=== PATIENT | female | born 1990 | race Caucasian/White ===

== ENCOUNTER 2016-07-04 06:31 | Day surgery (SDC) | payer BC ==
[2016-06-29 12:43] VITALS: BMI 25.2
[~2016-07-04 06:31] MED LIST: DEXAMETHASONE SOD PHOSPHATE 10 MG/ML 1 ML VIAL IV ONE; DEXAMETHASONE SOD PHOSPHATE 4 MG/ML 1 ML VIAL IV ONE; FAMOTIDINE 20 MG/2 ML VIAL IV ONE; MIDAZOLAM 2 MG/2 ML VIAL IV PRN; ONDANSETRON 4 MG/2 ML VIAL IVP ONE; Pre Op ABX Message 1 EACH MISC MISCELLANE ONE
[2016-07-04] MEDS ORDERED: LIDOCAINE 1% 20 ML VIAL (10MG/ML) FOR IV START INTRADERMA ONE (07:02)
[2016-07-04] MEDS: LACTATED RINGERS 1,000 ML IV SCH ×2 (07:02→09:05)
[2016-07-04] MEDS ORDERED: ONDANSETRON 4 MG/2 ML VIAL ONE (07:26)
[2016-07-04] MEDS ORDERED: SUCCINYLCHOLINE CHLORIDE 100 MG/5 ML SYR IV ONE (07:26)
[2016-07-04] MEDS ORDERED: HYDROmorphone (PF) 1 MG/ML ONE (07:26)
[2016-07-04] MEDS ORDERED: DEXAMETHASONE SOD PHOS (MDV) 100 MG/10 ML VIAL ONE (07:26)
[2016-07-04] MEDS ORDERED: LIDOCAINE 1% INJ 10MG/ML (20 ML MDV) ONE (07:26)
[2016-07-04] MEDS ORDERED: fentaNYL (PF) 50 MCG/ML 2 ML AMP ONE (07:26)
[2016-07-04] MEDS ORDERED: PROPOFOL 10 MG/ML 20 ML VIAL IV ONE (07:26)
--- NOTE | 2016-07-04 08:03 | P.OP ---
Date of Procedure: 07/04/16 Preoperative Diagnosis: Chronic cryptic tonsillitis Postoperative Diagnosis: Same Procedure(s) Performed: Tonsillectomy Anesthesia: JUAN ANTONIO Surgeon: Mauricio Pratt Estimated Blood Loss (ml): 5 Pathology: other (Bilateral tonsils) Condition: stable Disposition: PACU Indications for Procedure: Is a 25-year-old white female whose had difficulties with chronic cryptic tonsillitis with debris gathering in the tonsils recurrently Operative Findings: Tonsils +3 bilaterally are cryptic with sulfur granules in the crypts Description of Procedure: The patient was brought in the operative suite and placed in supine position. The patient underwent induction of general anesthesia with oral endotracheal intubation without difficulty. The patient was prepped and draped in usual aseptic fashion. The McIvor mouth gag was placed. The soft palate was palpated and no submucous cleft was noted. Nasopharynx was examined with mirror exam and no significant adenoid tissue was noted and therefore this was left intact. The left tonsil was grasped with a curved Allis clamp and dissected from tonsillar fossa in a superior to inferior direction using both blunt and electrocautery dissection until the tonsil was removed. Once the tonsil was removed hemostasis was gained with suction cautery. Once hemostasis was obtained attention was turned to the right where the right tonsil was removed exactly as the left had been. Hemostasis was gained with suction cautery. Once hemostasis was obtained and remained good in left tonsillar fossa the patient was suctioned in oral gastric fashion the McIvor mouth gag was removed and the patient was allowed to emerge from general anesthesia having tolerated procedure well and was extubated in the operating suite and transferred to postop recovery area in satisfactory condition.
[2016-07-04 08:27] VITALS: TEMP 97.6
[2016-07-04] MEDS: HYDROmorphone 1 MG/ML 1 ML SYRINGE IVP PRN ×2 (08:32→08:39)
[2016-07-04 08:48] VITALS: RESP 16
[2016-07-04] MEDS ORDERED: HYDROcodone/APAP 7.5-325MG 1 EACH TAB PO ONE (09:48)
[2016-07-04 09:59] VITALS: BP 110/72; PULSE 71
== END 2016-07-04 10:35 | disposition home or self-care (01) ==
LOC: OR 06:31
PROVIDERS: ATTEND Otolaryngology
DX: J35.01 Chronic tonsillitis (principal); Z87.891 Personal history of nicotine dependence
CPT/HCPCS: 42826; 81025; 88304; J2250; J1100 ×2; J2405; J2001; J3010; J1170; J0330; J2704

== ENCOUNTER 2017-10-30 05:50 | Inpatient (IN) | payer BC ==
[2017-10-30 06:06] VITALS: BMI 33.5
[2017-10-30] MEDS ORDERED: METHYLERGONOVINE 0.2 MG/ML 1 ML AMP IM PRN (06:22)
[2017-10-30] MEDS ORDERED: OXYTOCIN 10 UNIT/ML 1 ML VIAL IM PRN (06:22)
[2017-10-30] MEDS ORDERED: TERBUTALINE 1 MG/ML VIAL SQ PRN (06:22)
[2017-10-30] MEDS ORDERED: LIDOCAINE 1% (PF) 10 MG/ML (30 ML SDV) SQ PRN (06:22)
[2017-10-30] MEDS ORDERED: CARBOPROST TROMETHAMINE 250 MCG/ML 1 ML AMP IM PRN (06:22)
[2017-10-30] MEDS ORDERED: OXYTOCIN 20 UNITS/1000 ML NS 1,000 ML IV SCH ×2 (06:30→20:30)
[2017-10-30] MEDS: LACTATED RINGERS 1,000 ML IV SCH ×2 (06:31→11:35)
[2017-10-30 06:35] LABS: Basophils % (A) 0 %; Eosinophils # (A) 0.2 k/uL (0-0.7); Eosinophils % (A) 2 %; HCT 31.6 % (34.0-46.0); HGB 10.6 gm/dL (11.4-16.0); Lymphocytes # (A) 2.2 k/uL (1.0-4.8); Lymphocytes % (A) 20 %; MCH 28.3 pg (25.0-35.0); MCHC 33.5 g/dL (31.0-37.0); MCV 84.5 fL (80.0-100.0); Mean Platelet Volume 7.3; Monocytes # (A) 0.6 k/uL (0-1.0); Monocytes % (A) 6 %; Neutrophils # (A) 7.5 k/uL (1.3-7.7); Neutrophils % (A) 70 %; Platelet Count 272 k/uL (150-450); RBC 3.74 m/uL (3.80-5.40); RDW 14.2 % (11.5-15.5); WBC 10.7 k/uL (3.8-10.6)
[2017-10-30 07:38] LABS: ALT 28 U/L (9-52); AST 22 U/L (14-36); Blood Urea Nitrogen 10 mg/dL (7-17); LDH 578 U/L (313-618); Uric Acid 4.9 mg/dL (3.7-7.4)
[2017-10-30] MEDS ORDERED: BUPIVACAINE (PF) 0.25% 30 ML VIAL ONE (11:16)
[2017-10-30] MEDS ORDERED: SODIUM CHLORIDE 0.9% 100 ML BAG ONE (11:16)
[2017-10-30] MEDS ORDERED: fentaNYL (PF) 50 MCG/ML 5 ML AMP ONE (11:16)
[2017-10-30] MEDS ORDERED: ROPIVACAINE 100 MG, fentaNYL (PF) 200 MCG in SODIUM CHLORIDE 0.9% 76 ML EPIDURAL ONE (11:43)
--- NOTE | 2017-10-30 17:01 | P.HPOB ---
History of Present Illness H&P Date: 10/30/17 Chief Complaint: IUP @ 39 2/7 weeks, gestational HTN This is a very pleasant 27-year-old 1 para 0 at 39-2/7 weeks EDC 2017, based on LMP and c/w 20 weeks US, that presented to labor and delivery for elective induction of labor secondary to gestational hypertension. Blood pressure the office yesterday was noted to be 140/90 with negative proteinuria. On initial examination here this morning she did range 140-160 over low 100s. She denies any signs or symptoms of PIH including but not limited to blurry vision, abdominal pain, or changes in her vision. She does note an occasional contraction denies loss of fluid or vaginal bleeding. She notes good movement On bloodwork should a blood type of A-, rubella immune, RPR nonreactive , hepatitis B surface antigen negative, HIV negative she did pass her Glucola, 128. GBS was negative in addition on 10/09/2017. Review of Systems Constitutional: Denies chills, Denies fatigue, Denies fever Ears, nose, mouth and throat: Denies headache Cardiovascular: Reports edema Respiratory: Denies cough, Denies dyspnea Gastrointestinal: Denies constipation, Denies diarrhea Genitourinary: Reports Past Medical History Additional Past Medical History / Comment(s): hx. of kidney stones, IBS, seasonal allergies History of Any Multi-Drug Resistant Organisms: None Reported Additional Past Surgical History / Comment(s): cystoscopy w/stent Past Anesthesia/Blood Transfusion Reactions: Previous Problems w/ Anesthesia Additional Past Anesthesia/Blood Transfusion Reaction / Comment(s): states after d/c from her cysto. she went to a restaurant-had some fruit, developed lip swelling, was seen in an EC but didn't know if was related to anesthesia or her issue she has w/raw fruit Past Psychological History: No Psychological Hx Reported Smoking Status: Never smoker Past Alcohol Use History: None Reported Past Drug Use History: None Reported - Past Family History Mother Family Medical History: No Reported History Medications and Allergies Home Medications Medication Instructions Recorded Confirmed Type No Known Home Medications [No 06/29/16 10/30/17 History Known Home Medications] Allergies Allergy/AdvReac Type Severity Reaction Status Date / Time fruit AdvReac itchy Uncoded 10/30/17 06:02 throat Exam Osteopathic Statement: *. No significant issues noted on an osteopathic structural exam other than those noted in the History and Physical/Consult. - Vital Signs Vital signs: Vital Signs Temp Pulse Resp BP Pulse Ox 10/30/17 06:03 96.9 F L 79 16 146/95 97 Intake and Output 10/30/17 10/30/17 10/30/17 06:59 14:59 22:59 Intake Total 1500 Balance 1500 Intake: IV 1500 Lactated Ringers 1,000 ml 1500 @ 125 mls/hr IV .Q8H TED Rx#:[id number] Other: Weight 94.347 kg Results Result Diagrams: 10/30/17 06:20 10/30/17 07:04 Abnormal Lab Results - Last 24 Hours (Table) 10/30/17 Range/Units 06:20 WBC 10.7 H (3.8-10.6) k/uL RBC 3.74 L (3.80-5.40) m/uL Hgb 10.6 L (11.4-16.0) gm/dL Hct 31.6 L (34.0-46.0) % Assessment and Plan (1) Term Current Visit: Yes Status: Acute Code(s): Z34.80 - ENCOUNTER FOR SUPRVSN OF NORMAL , UNSP TRIMESTER SNOMED Code(s): 65081798 (2) Gestational hypertension affecting first Current Visit: Yes Status: Acute Code(s): O13.9 - GESTATIONAL HTN W/O SIGNIFICANT PROTEINURIA, UNSP TRIMESTER SNOMED Code(s): 84907578 Plan: Will admit to labor and delivery for Pitocin induction of labor. QUESTIONS are answered amniotomy will be performed when appropriate. Epidural as requested
[2017-10-30] MEDS ORDERED: ACETAMINOPHEN TAB 325 MG TAB PO PRN (20:30)
[2017-10-30] MEDS ORDERED: HYDROCORTISONE 2.5% RECTAL CREAM 30 GM TUBE RECTAL PRN (20:30)
[2017-10-30] MEDS ORDERED: ZOLPIDEM 5 MG TAB PO PRN (20:30)
[2017-10-30] MEDS ORDERED: SIMETHICONE 80 MG CHEWABLE PO PRN (20:30)
[2017-10-30] MEDS ORDERED: WITCH HAZEL 1 EACH MED..PAD TOPICAL PRN (20:30)
[2017-10-30] MEDS ORDERED: diphenhydrAMINE 25 MG CAP PO PRN (20:30)
[2017-10-30] MEDS ORDERED: diphenhydrAMINE 50 MG/ML 1 ML VIAL IVP PRN ×2 (20:30)
[2017-10-30] MEDS ORDERED: BENZOCAINE/MENTHOL SPRAY 1 GM/SPRAY AEROSOL TOPICAL PRN (20:30)
[2017-10-30] MEDS ORDERED: LANOLIN CREAM 5 GM TUBE TOPICAL PRN (20:30)
[2017-10-30] MEDS ORDERED: diphenhydrAMINE 50 MG CAP PO PRN (20:30)
--- NOTE | 2017-10-30 20:30 | P.PROBDLV ---
Vaginal Delivery Note - . Vaginal Delivery Note: This is a very pleasant 27-year-old 1 para 0 at 39-2/7 weeks that presented to labor and delivery for induction of labor secondary to gestational hypertension. Patient was started on Pitocin induction of labor and amniotomy was performed thin meconium was noted on at this time. She eventually got an epidural. she was then noted to be completely and started pushing and had a spontaneous vaginal delivery of a viable male at 2000, no nuchal cord noted weight of 6 lbs. 2 oz., Apgars of 8 and 9 at one and 5 minutes respectively. Patient did sustain bilateral labial lacerations and a first- degree vaginal lacerations these were repaired in the usual fashion. Afterwards the vaginal vault was inspected and no further lacerations were noted. Patient did tolerate this procedure well. Next estimated blood loss was approximately 300 mL.
[2017-10-30] MEDS: IBUPROFEN 600 MG TAB PO PRN (21:41)
[2017-10-31 05:26] LABS: Basophils % (A) 0 %; Eosinophils # (A) 0.1 k/uL (0-0.7); Eosinophils % (A) 1 %; HCT 30.3 % (34.0-46.0); HGB 9.9 gm/dL (11.4-16.0); Lymphocytes # (A) 2.2 k/uL (1.0-4.8); Lymphocytes % (A) 13 %; MCH 28.1 pg (25.0-35.0); MCHC 32.8 g/dL (31.0-37.0); MCV 85.6 fL (80.0-100.0); Mean Platelet Volume 7.7; Monocytes # (A) 0.8 k/uL (0-1.0); Monocytes % (A) 5 %; Neutrophils # (A) 13.3 k/uL (1.3-7.7); Neutrophils % (A) 79 %; Platelet Count 276 k/uL (150-450); RBC 3.54 m/uL (3.80-5.40); RDW 14.4 % (11.5-15.5); WBC 16.7 k/uL (3.8-10.6)
[2017-10-31] MEDS: SENNOSIDES-DOCUSATE SODIUM 1 EACH TAB PO SCH ×2 (08:12→20:13)
--- NOTE | 2017-10-31 08:12 | P.PNOBGVD ---
Subjective - Subjective Principal diagnosis: PPD 1 Interval history: Patient did well overnight. She states her lochia is moderate. She is breast- feeding with some difficulty. She is ambulating and voiding without difficulty and tolerating regular diet without nausea or vomiting. She denies pain this morning. Patient reports: Reports appetite normal, Reports voiding normally, Reports pain well controlled, Reports ambulating normally : nursing well Objective - Latest Vital Signs Latest vital signs: Vital Signs Temp Pulse Resp BP 10/31/17 03:30 98.4 F 89 16 120/72 10/30/17 22:15 98.2 F 94 14 129/78 10/30/17 21:45 86 14 143/77 10/30/17 21:15 94 16 145/75 10/30/17 21:00 100 14 142/75 10/30/17 20:45 96 16 142/84 10/30/17 20:30 100.0 F H 105 H 16 138/70 10/30/17 20:15 112 H 16 138/63 Intake and Output 10/30/17 10/31/17 10/31/17 22:59 06:59 14:59 Other: # Voids 1 - Exam Extremities: Present: normal Abdomen: Present: normal appearance, soft Uterus: Present: firm - Labs Labs: Abnormal Lab Results - Last 24 Hours (Table) 10/31/17 Range/Units 05:08 WBC 16.7 H (3.8-10.6) k/uL RBC 3.54 L (3.80-5.40) m/uL Hgb 9.9 L (11.4-16.0) gm/dL Hct 30.3 L (34.0-46.0) % Neutrophils # 13.3 H (1.3-7.7) k/uL Assessment and Plan (1) Term Current Visit: Yes Status: Acute Code(s): Z34.80 - ENCOUNTER FOR SUPRVSN OF NORMAL , UNSP TRIMESTER SNOMED Code(s): 37121403 (2) Gestational hypertension affecting first Current Visit: Yes Status: Acute Code(s): O13.9 - GESTATIONAL HTN W/O SIGNIFICANT PROTEINURIA, UNSP TRIMESTER SNOMED Code(s): 48276267 (3) Status post vaginal delivery Current Visit: Yes Status: Acute Code(s): OWO2838 - SNOMED Code(s): 746676726 Plan: Patient is doing well , she does wish to stay until tomorrow morning as she delivered at 8 PM last evening. Will plan circumcision tomorrow morning.
[2017-10-31] MEDS: IBUPROFEN 600 MG TAB PO PRN ×2 (09:49→15:52)
[2017-11-01] MEDS: IBUPROFEN 600 MG TAB PO PRN ×2 (01:05→06:54)
--- NOTE | 2017-11-01 08:26 | P.DS ---
Providers Date of admission: 10/30/17 05:50 Expected date of discharge: 11/01/17 Attending physician: Libia Staley Primary care physician: Stated None - Discharge Diagnosis(es) (1) Term Current Visit: Yes Status: Acute (2) Gestational hypertension affecting first Current Visit: Yes Status: Acute (3) Status post vaginal delivery Current Visit: Yes Status: Acute Hospital Course: This is a very pleasant 27-year-old 1 para 0 that presented to labor and delivery at 39-2/7 weeks. Patient was noted have an elevated blood pressure in the office of 140/90. Patient elected induction secondary to gestational hypertension. Patient came to labor and delivery some elevated blood pressures were noted and the normalized. Patient was started on Pitocin induction of labor. Patient progressed third labor amniotomy was performed and thin meconium was noted. Patient requested an epidural which was done by anesthesia without difficulty. Patient progressed to complete and normal spontaneous vaginal delivery of a viable male at 2000. Apgars of 8 and 9 at one and 5 minutes respect daily. For further details please see the delivery record. Patient's course has been uneventful. She is ambulating and voiding without difficulty. She is tolerating a regular diet without nausea or vomiting. She denies any concerns and wishes discharge home on this day #2. Patient Condition at Discharge: Good Plan - Discharge Summary New Discharge Prescriptions: No Action No Known Home Medications [No Known Home Medications] Discharge Medication List No Known Home Medications [No Known Home Medications] 06/29/16 [History] Follow up Appointment(s)/Referral(s): Libia Staley DO [Doctor of Osteopathic Medicine] - 1 Week Patient Instructions/Handouts: Vaginal Delivery (DC), Vaginal Delivery (GEN) Activity/Diet/Wound Care/Special Instructions: No tub baths or intercourse until 6 weeks Discharge Disposition: HOME SELF-CARE
[2017-11-01 08:29] VITALS: BP 136/88; PULSE 100; RESP 16; TEMP 98.4
== END 2017-11-01 11:15 | disposition home or self-care (01) | DRG 775 ==
LOC: 4FBP 05:50
PROVIDERS: ADMIT Obstetrics & Gynecology Obstetrics; ATTEND Obstetrics & Gynecology Obstetrics
PROC: 10E0XZZ Delivery of Products of Conception, External Approach (ICD-10-PCS; principal; 2017-10-30)
PROC: 0HQ9XZZ Repair Perineum Skin, External Approach (ICD-10-PCS; 2017-10-30)
PROC: 00HU33Z Insertion of Infusion Device into Spinal Canal, Percutaneous Approach (ICD-10-PCS; 2017-10-30)
PROC: 3E0R3BZ Introduction of Anesthetic Agent into Spinal Canal, Percutaneous Approach (ICD-10-PCS; 2017-10-30)
PROC: 3E033VJ Introduction of Other Hormone into Peripheral Vein, Percutaneous Approach (ICD-10-PCS; 2017-10-30)
PROC: 10907ZC Drainage of Amniotic Fluid, Therapeutic from Products of Conception, Via Natural or Artificial Opening (ICD-10-PCS; 2017-10-30)
DX: O13.4 Gestational [pregnancy-induced] hypertension without significant proteinuria, complicating childbirth (principal); Z37.0 Single live birth; O77.0 Labor and delivery complicated by meconium in amniotic fluid; O99.62 Diseases of the digestive system complicating childbirth; K58.9 Irritable bowel syndrome, unspecified; O70.0 First degree perineal laceration during delivery; O99.52 Diseases of the respiratory system complicating childbirth; Z3A.39 39 weeks gestation of pregnancy; Z87.442 Personal history of urinary calculi
CPT/HCPCS: 82565; 83615; 84450; 84460; 84520; 84550; 85025

== ENCOUNTER 2019-04-15 06:00 | Inpatient (IN) | payer BC ==
[2019-04-15] MEDS ORDERED: METHYLERGONOVINE 0.2 MG/ML 1 ML AMP IM PRN (06:10)
[2019-04-15] MEDS ORDERED: TERBUTALINE 1 MG/ML VIAL SQ PRN (06:10)
[2019-04-15] MEDS ORDERED: LIDOCAINE 0.5% (PF) 5 MG/ML (50 ML SDV) SQ PRN (06:10)
[2019-04-15] MEDS ORDERED: OXYTOCIN 10 UNIT/ML 1 ML VIAL IM PRN (06:10)
[2019-04-15] MEDS ORDERED: CARBOPROST TROMETHAMINE 250 MCG/ML 1 ML AMP IM PRN (06:10)
[2019-04-15] MEDS ORDERED: OXYTOCIN 30 UNITS/500 ML NS 30 UNIT in SALINE 1 500ML.BAG IV SCH (06:15)
[2019-04-15] MEDS: LACTATED RINGERS 1,000 ML IV SCH ×3 (06:29→15:33)
[2019-04-15 06:35] LABS: Basophils % (A) 0 %; Eosinophils # (A) 0.1 k/uL (0-0.7); Eosinophils % (A) 1 %; HCT 33.9 % (34.0-46.0); HGB 11.6 gm/dL (11.4-16.0); Lymphocytes # (A) 2.4 k/uL (1.0-4.8); Lymphocytes % (A) 24 %; MCH 30.5 pg (25.0-35.0); MCHC 34.3 g/dL (31.0-37.0); MCV 88.9 fL (80.0-100.0); Mean Platelet Volume 5.8; Monocytes # (A) 0.5 k/uL (0-1.0); Monocytes % (A) 5 %; Neutrophils # (A) 6.7 k/uL (1.3-7.7); Neutrophils % (A) 68 %; Platelet Count 260 k/uL (150-450); RBC 3.82 m/uL (3.80-5.40); RDW 13.5 % (11.5-15.5)
--- NOTE | 2019-04-15 08:24 | P.HPOB ---
History of Present Illness H&P Date: 04/15/19 Chief Complaint: IUP at 39-0/7 weeks, suspected LGA This is a pleasant 28-year-old 2 para 1001 at 39-0/7 weeks with an estimated due date of 04/22/19. Patient has been receiving routine care with myself which has been uncomplicated. is noted to have a two- vessel cord and testing has been normal. Today she notes the fetus has been active, she denies contractions, vaginal bleeding or loss of fluid. On blood work she has a blood type of A-, rubella nonimmune, hepatitis B surface antigen negative, HIV negative, RPR nonreactive, GBS negative. Review of Systems Constitutional: Denies chills, Denies fatigue, Denies fever Ears, nose, mouth and throat: Denies headache Cardiovascular: Reports leg edema Respiratory: Denies dyspnea Gastrointestinal: Reports constipation, Denies diarrhea, Denies nausea, Denies vomiting Genitourinary: Reports Past Medical History Additional Past Medical History / Comment(s): hx. of kidney stones, IBS, seasonal allergies History of Any Multi-Drug Resistant Organisms: None Reported Past Surgical History: Tonsillectomy Additional Past Surgical History / Comment(s): cystoscopy w/stent Past Anesthesia/Blood Transfusion Reactions: Previous Problems w/ Anesthesia Additional Past Anesthesia/Blood Transfusion Reaction / Comment(s): states after d/c from her cysto. she went to a restaurant-had some fruit, developed lip swelling, was seen in an EC but didn't know if was related to anesthesia or her issue she has w/raw fruit Past Psychological History: No Psychological Hx Reported Smoking Status: Never smoker Past Alcohol Use History: None Reported Past Drug Use History: None Reported - Past Family History Mother Family Medical History: No Reported History Medications and Allergies Home Medications Medication Instructions Recorded Confirmed Type 78/Iron/Folate 1/Dha 1 each PO DAILY 04/15/19 04/15/19 History [Prenate Dha Softgel] Allergies Allergy/AdvReac Type Severity Reaction Status Date / Time fruit AdvReac itchy Uncoded 04/15/19 06:09 throat Exam Osteopathic Statement: *. No significant issues noted on an osteopathic structural exam other than those noted in the History and Physical/Consult. Vital Signs Temp Pulse Resp BP 04/15/19 06:16 98.1 F 91 16 140/86 Intake and Output 04/14/19 04/15/19 04/15/19 22:59 06:59 14:59 Other: Weight 91.626 kg Targeted physical exam is performed in this date in general this a well- nourished well-developed female in no acute distress, breathing is noted to nonlabored her heart has a regular rate and rhythm, abdomen is gravid and appropriate for gestational age, on cervical exam she is 3/50/-2 amniotomy is performed and clear fluid was obtained. heart tones returned be category 1 and she is lux every 2 minutes on 4 milliunits of Pitocin. Results Result Diagrams: 04/15/19 06:00 Abnormal Lab Results - Last 24 Hours (Table) 04/15/19 Range/Units 06:00 Hct 33.9 L (34.0-46.0) % Assessment and Plan (1) Term Current Visit: No Status: Acute Code(s): Z34.80 - ENCOUNTER FOR SUPRVSN OF NORMAL , UNSP TRIMESTER SNOMED Code(s): 40689841 Plan: Patient is admitted to labor and delivery for induction of labor. Pitocin augmentation of labor started per hospital protocol. Anticipate spontaneous vaginal delivery later today. Patient does desire epidural at some point and anesthesia will be notified.
[2019-04-15] MEDS: BUTORPHANOL 1 MG/ML 1 ML VIAL IV PRN ×2 (08:30→10:33)
[2019-04-15] MEDS: PRENATAL VIT-IRON-FOLIC ACID 1 EACH CAP PO SCH (10:03)
[2019-04-15] MEDS ORDERED: diphenhydrAMINE 50 MG/ML 1 ML VIAL IVP PRN ×3 (14:23→16:56)
[2019-04-15] MEDS ORDERED: ROPIVACAINE 100 MG, fentaNYL (PF) 200 MCG in SODIUM CHLORIDE 0.9% 76 ML EPIDURAL ONE (14:31)
[2019-04-15] MEDS ORDERED: LANOLIN CREAM 5 GM TUBE TOPICAL PRN (16:56)
[2019-04-15] MEDS ORDERED: WITCH HAZEL 1 EACH MED..PAD TOPICAL PRN (16:56)
[2019-04-15] MEDS ORDERED: HYDROcodone/APAP 5-325MG 1 EACH TAB PO PRN (16:56)
[2019-04-15] MEDS ORDERED: ZOLPIDEM 5 MG TAB PO PRN (16:56)
[2019-04-15] MEDS ORDERED: diphenhydrAMINE 50 MG CAP PO PRN (16:56)
[2019-04-15] MEDS ORDERED: HYDROCORTISONE 2.5% RECTAL CREAM 30 GM TUBE RECTAL PRN (16:56)
[2019-04-15] MEDS ORDERED: MEASLES-MUMPS-RUBELLA VACC/PF 12,500 UNIT/0.5 ML VIAL SQ ONE (16:56)
[2019-04-15] MEDS ORDERED: diphenhydrAMINE 25 MG CAP PO PRN (16:56)
[2019-04-15] MEDS ORDERED: ACETAMINOPHEN TAB 325 MG TAB PO PRN (16:56)
[2019-04-15] MEDS ORDERED: BENZOCAINE/MENTHOL SPRAY 1 GM/SPRAY AEROSOL TOPICAL PRN (16:56)
[2019-04-15] MEDS ORDERED: SIMETHICONE 80 MG CHEWABLE PO PRN (16:56)
--- NOTE | 2019-04-15 16:56 | P.PROBDLV ---
Vaginal Delivery Note - . Vaginal Delivery Note: This pleasant 28-year-old 2 para 1001 at 39 0/7 weeks presents to labor and delivery for elective induction of labor secondary to suspected LGA. Patient was admitted to labor and delivery Pitocin induction of labor was begun per hospital protocol. Patient underwent amniotomy clear fluid was obtained. Patient became uncomfortable and requested epidural placement. Epidural was placed without difficulty by the anesthesia department. A shunt progressed to c omplete began pushing and had a normal spontaneous vaginal delivery of a viable male infant at 1636, weight of 8 lbs. 14 oz. with Apgars of 9 and 9 at one and 5 minutes respectively. The umbilical cord was doubly clamped and cut after two- minute delay. The placenta was then delivered spontaneously intact with a three-vessel cord being noted. On inspection the patient's vaginal vault a midline second-degree laceration was noted. This was repaired in the usual fashion with 3-0 Rapide after being injected with lidocaine. uterus is noted be firm and below the umbilicus, estimated blood loss 200 mL Patient and tolerated delivery well and are resting comfortably All counts were correct 2.
[2019-04-15] MEDS ORDERED: OXYTOCIN 20 UNITS/1000 ML NS 1,000 ML IV SCH (17:00)
[2019-04-15] MEDS: SENNOSIDES-DOCUSATE SODIUM 1 EACH TAB PO SCH (19:53)
[2019-04-16] MEDS: IBUPROFEN 600 MG TAB PO PRN ×3 (01:18→17:08)
[2019-04-16 07:43] LABS: Basophils % (A) 0 %; Eosinophils # (A) 0.1 k/uL (0-0.7); Eosinophils % (A) 1 %; HCT 30.9 % (34.0-46.0); HGB 10.4 gm/dL (11.4-16.0); Lymphocytes % (A) 24 %; MCH 30.3 pg (25.0-35.0); MCHC 33.8 g/dL (31.0-37.0); MCV 89.9 fL (80.0-100.0); Monocytes # (A) 0.6 k/uL (0-1.0); Monocytes % (A) 5 %; Neutrophils # (A) 8.9 k/uL (1.3-7.7); Neutrophils % (A) 69 %; Platelet Count 233 k/uL (150-450); RBC 3.44 m/uL (3.80-5.40); RDW 13.7 % (11.5-15.5); WBC 12.8 k/uL (3.8-10.6)
--- NOTE | 2019-04-16 08:12 | P.DS ---
Providers Date of admission: 04/15/19 06:02 Expected date of discharge: 04/16/19 Attending physician: Libia Staley Primary care physician: Stated None - Discharge Diagnosis(es) (1) Term Current Visit: No Status: Acute (2) Status post vaginal delivery Current Visit: No Status: Acute Hospital Course: This is a 28-year-old 2 para 1001 at 39-0/7 weeks that presented to labor and delivery yesterday for elective induction of labor for suspected LGA. Patient was admitted and Pitocin induction of labor was begun. Patient made good progress eventually becoming uncomfortable and requesting epidural placement. Epidural was placed by the anesthesia without difficulty. Patient progressed to complete began pushing and had a normal spontaneous vaginal delivery of a viable male at 1636, weight of 8 lbs. 14 oz. with Apgars of 99 at one and 5 minutes respectfully. Patient did sustain a second degree midline laceration which was repaired in the usual fashion with 3-0 repeat. Patient's course has been uneventful on this day #1 she is ambulating and voiding without difficulty. She is tolerating a regular diet without nausea or vomiting. She is breast-feeding with some difficulty. She does wish discharge home at 24 hours if the infant is discharged as well. Patient Condition at Discharge: Good Plan - Discharge Summary New Discharge Prescriptions: No Action 78/Iron/Folate 1/Dha [Prenate Dha Softgel] 1 each PO DAILY Discharge Medication List 78/Iron/Folate 1/Dha [Prenate Dha Softgel] 1 each PO DAILY 04/15/19 [History] Follow up Appointment(s)/Referral(s): Libia Staley DO [Doctor of Osteopathic Medicine] - 4 Weeks Patient Instructions/Handouts: Vaginal Delivery (DC), Vaginal Delivery (GEN) Discharge Disposition: HOME SELF-CARE
[2019-04-16] MEDS: SENNOSIDES-DOCUSATE SODIUM 1 EACH TAB PO SCH (08:22)
[2019-04-16 08:55] VITALS: RESP 16
[2019-04-16] MEDS: PRENATAL VIT-IRON-FOLIC ACID 1 EACH CAP PO SCH (12:29)
[2019-04-16 17:20] VITALS: BP 108/66; PULSE 76; TEMP 98.2
== END 2019-04-16 17:45 | disposition home or self-care (01) | DRG 807 ==
LOC: 4FBP 06:02
PROVIDERS: ADMIT Obstetrics & Gynecology Obstetrics; ATTEND Obstetrics & Gynecology Obstetrics
PROC: 0KQM0ZZ Repair Perineum Muscle, Open Approach (ICD-10-PCS; principal; 2019-04-15)
PROC: 10E0XZZ Delivery of Products of Conception, External Approach (ICD-10-PCS; principal; 2019-04-15)
DX: O70.1 Second degree perineal laceration during delivery (principal); Z37.0 Single live birth; Z3A.39 39 weeks gestation of pregnancy; Z87.442 Personal history of urinary calculi
CPT/HCPCS: 85025; 86850; 86900; 86901; 90471; 90707

== ENCOUNTER → 2021-05-29 | Outpatient (CLI) | payer BC, OTHER | END | disposition home or self-care (01) | LOC: LABWHC1 09:50 | PROVIDERS: ATTEND Family Medicine | DX: Z20.822 Contact with and (suspected) exposure to COVID-19 (principal) | CPT/HCPCS: U0003; C9803 ==

== ENCOUNTER → 2021-08-24 | Outpatient (CLI) | payer OTHER ==
[2021-08-24 13:50] VITALS: BP 108/64; PULSE 82; RESP 18; TEMP 97.4
--- NOTE | 2021-11-05 14:52 | P.MSEPDOC ---
Presenting Problems - Arrival Data Date of Arrival on Unit: 08/24/21 Time of Arrival on Unit: 12:33 Mode of Transport: Ambulatory - Complaint OB-Reason for Admission/Chief Complaint: Vaginal Bleeding Comment: Pt noticed around 1000 just finished going to the bathroom and noticed bright. red blood clot smaller than pea and pink tinged when wiped. has had the same pad on. since then and only dime size spot noted on peripad pink in color Medical History - Information : 3 Para: 2 Term: 2 : 0 Abortions: Spontaneous or Elective: 0 Number of Living Children: 2 - Gestational Age Gestational Age by LUCAS (wks/days): 32 Weeks and 6 Days Review of Systems - Review of Systems Constitutional: No problems Breast: No problems ENT: No problems Cardiovascular: No problems Respiratory: No problems Gastrointestinal: No problems Genitourinary: No problems Musculoskeletal: No problems Neurological: No problems Skin: No problems Vital Signs - Temperature Temperature: 97.4 F Temperature Source: Temporal Artery Scan - Pulse Pulse Oximetery Pulse Rate: 82 Pulse Assessment Method: Automatic Cuff - Respirations Respiratory Rate: 18 Oxygen Delivery Method: Room Air O2 Sat by Pulse Oximetry: 97 - Blood Pressure Right Arm Blood Pressure: 108/64 Blood Pressure Mean: 78 Blood Pressure Source: Automatic Cuff Medical Screen Scoring - Cervical Exam Dilation (cm): 0 Effacement (%): 0 Station: -2 Membranes: Intact - Assessment - Baby A Baseline FHR: 130 Heart Rate - NICHD Category: Category I (Normal) NST: Reactive Physician Notification - Physician Notified Physician Notified Date: 08/24/21 Physician Notified Time: 13:13 Physician: ivan Staley New Order Received: Yes - Notification Comment Comment: Cervical check, if closed may go home on pelvic rest until next appt next Saturday. Maternal Triage Index - Maternal Triage Index Presenting for scheduled procedure w/no complaint: No - Stat/Priority 1 Stat Priority 1: No - Urgent/Priority 2 Urgent Priority 2: No - Prompt/Priority 3 Prompt Priority 3: Yes Criteria Met for Priority 3: Vaginal bleeding- small quarter amt of pink blood noted on mo pad since 1020 until 1300. Denies feeling contractions, no contractions per toco or palpated. Disposition - Disposition OB Disposition: Discharge to home Discharge Date: 08/24/21 Discharge Time: 13:05 I agree with the RN Medical Screening Exam: Yes Case reviewed; plan agreed upon as documented in EMR&OBIX.: Yes Diagnosis: SPOTTING COMPLICATING , THIRD TRIMESTER
== END ==
LOC: FBPOP 12:21
PROVIDERS: ATTEND Obstetrics & Gynecology Obstetrics
DX: O26.853 Spotting complicating pregnancy, third trimester (principal); Z3A.32 32 weeks gestation of pregnancy
CPT/HCPCS: 59025; 99213

== ENCOUNTER 2021-10-10 05:51 | Inpatient (IN) | payer OTHER ==
[2021-10-10] MEDS ORDERED: CARBOPROST TROMETHAMINE 250 MCG/ML 1 ML AMP IM PRN (06:07)
[2021-10-10] MEDS ORDERED: OXYTOCIN 10 UNIT/ML 1 ML VIAL IM PRN (06:07)
[2021-10-10] MEDS ORDERED: METHYLERGONOVINE 0.2 MG/ML 1 ML AMP IM PRN (06:07)
[2021-10-10] MEDS ORDERED: LIDOCAINE 0.5% (PF) 5 MG/ML (50 ML SDV) SQ PRN (06:07)
[2021-10-10] MEDS ORDERED: TERBUTALINE 1 MG/ML VIAL SQ PRN (06:07)
[2021-10-10] MEDS: LACTATED RINGERS 1,000 ML IV SCH ×3 (06:13→12:28)
[2021-10-10 06:26] LABS: Basophils % (A) 0 %; Eosinophils # (A) 0.1 k/uL (0-0.7); Eosinophils % (A) 1 %; HCT 36.7 % (34.0-46.0); HGB 11.7 gm/dL (11.4-16.0); Lymphocytes # (A) 2.5 k/uL (1.0-4.8); Lymphocytes % (A) 25 %; MCH 29.1 pg (25.0-35.0); MCHC 31.8 g/dL (31.0-37.0); MCV 91.5 fL (80.0-100.0); Mean Platelet Volume 7.3; Monocytes # (A) 0.5 k/uL (0-1.0); Monocytes % (A) 5 %; Neutrophils % (A) 67 %; Platelet Count 243 k/uL (150-450); RBC 4.02 m/uL (3.80-5.40); RDW 14.2 % (11.5-15.5); WBC 10.3 k/uL (3.8-10.6)
[2021-10-10] MEDS: OXYTOCIN 30 UNITS/500 ML NS 30 UNIT in SALINE 1 500ML.BAG IV SCH ×2 (06:28→18:54)
[2021-10-10] MEDS ORDERED: fentaNYL (PF) 50 MCG/ML 5 ML AMP ONE (10:27)
[2021-10-10] MEDS ORDERED: ROPIVACAINE 5MG/ML 20ML VIAL ONE (10:27)
[2021-10-10] MEDS ORDERED: SODIUM CHLORIDE 0.9% 100 ML BAG ONE (10:27)
[2021-10-10] MEDS ORDERED: ZOLPIDEM 5 MG TAB PO PRN (16:36)
[2021-10-10] MEDS ORDERED: SIMETHICONE 80 MG CHEWABLE PO PRN (16:36)
[2021-10-10] MEDS ORDERED: diphenhydrAMINE 50 MG CAP PO PRN (16:36)
[2021-10-10] MEDS ORDERED: HYDROCORTISONE 2.5% RECTAL CREAM 30 GM TUBE RECTAL PRN (16:36)
[2021-10-10] MEDS ORDERED: LANOLIN CREAM 5 GM TUBE TOPICAL PRN (16:36)
[2021-10-10] MEDS ORDERED: diphenhydrAMINE 25 MG CAP PO PRN (16:36)
[2021-10-10] MEDS ORDERED: diphenhydrAMINE 50 MG/ML 1 ML VIAL IVP PRN ×2 (16:36)
[2021-10-10] MEDS ORDERED: BENZOCAINE/MENTHOL SPRAY 1 GM/SPRAY AEROSOL TOPICAL PRN (16:36)
--- NOTE | 2021-10-10 16:41 | P.HPOB ---
History of Present Illness H&P Date: 10/10/21 Chief Complaint: IUP at 39 and 0/7 weeks This is a 31 yo at 39 weeks that presents for elective induction of labor secondary to suspected LGA. She has been receiving routine care with myself. she is noting good FM, occasional contractions. Patient denies loss of fluid or vaginal bleeding. On bloodwork this patient is blood type of A-, rubella status immune, B surface antigen negative, HIV negative, RPR is nonreactive, group beta strep cultures negative. Review of Systems Constitutional: Denies chills, Denies fatigue, Denies fever Ears, nose, mouth and throat: Denies headache Cardiovascular: Reports leg edema Respiratory: Denies dyspnea Gastrointestinal: Denies constipation, Denies diarrhea, Denies nausea, Denies vomiting Genitourinary: Reports Past Medical History Past Medical History: No Reported History Additional Past Medical History / Comment(s): hx. of kidney stones, IBS, seasonal allergies History of Any Multi-Drug Resistant Organisms: None Reported Past Surgical History: Tonsillectomy Additional Past Surgical History / Comment(s): cystoscopy w/stent Past Anesthesia/Blood Transfusion Reactions: Previous Problems w/ Anesthesia Additional Past Anesthesia/Blood Transfusion Reaction / Comment(s): Pt reports that she broke out in hives after her epidural with her last delivery Past Psychological History: No Psychological Hx Reported Smoking Status: Never smoker Past Alcohol Use History: None Reported Past Drug Use History: None Reported - Past Family History Mother Family Medical History: No Reported History Medications and Allergies Home Medications Medication Instructions Recorded Confirmed Type 78/Iron/Folate 1/Dha 1 each PO DAILY 04/15/19 10/10/21 History [Prenate Dha Softgel] Aspirin [Adult Low Dose Aspirin EC] 81 mg PO DAILY 08/24/21 10/10/21 History Allergies Allergy/AdvReac Type Severity Reaction Status Date / Time No Known Allergies Allergy Verified 10/10/21 06:07 Exam Osteopathic Statement: *. No significant issues noted on an osteopathic structural exam other than those noted in the History and Physical/Consult. Vital Signs Temp Pulse Resp BP Pulse Ox 10/10/21 06:05 97.3 F L 89 16 114/67 97 Intake and Output 10/09/21 10/10/21 10/10/21 22:59 06:59 14:59 Other: Weight 97.522 kg Targeted physical exam is performed in this date and contracts administrator a well-nourished well-developed female in no acute distress, breathing is nonlabored, heart has regular rate and rhythm, abdomen is gravid and suspected large for gestational age, heart tones returned be category 1, she is lux irregularly. On cervical exam she is 3/50/-2 station amniotomy is performed with scant fluid obtained. Results Result Diagrams: 10/10/21 06:10 Assessment and Plan (1) Term Current Visit: No Status: Acute Code(s): Z34.80 - ENCOUNTER FOR SUPRVSN OF NORMAL , UNSP TRIMESTER SNOMED Code(s): 34544304 Plan: 31-year-old at 39 weeks of gestation that presents for secondary to suspected large for gestational age. Patient is admitted to labor and delivery and Pitocin induction of labor is begun per hospital protocol. Patient does desire epidural anesthesia will be notified once it is appropriate. And states spontaneous vaginal delivery later today.
--- NOTE | 2021-10-10 16:44 | P.PROBDLV ---
Vaginal Delivery Note - . Vaginal Delivery Note: 31-year-old 002 at 39-4/7 weeks that presents to labor and delivery for elective induction of labor. Dissected suspected macrosomia was appreciated. Patient was admitted to labor and delivery and Pitocin induction of labor was begun. Patient was noted to be 3 cm on admission. Patient underwent amniotomy clear fluid was obtained. Patient progressed through labor getting uncomfortable and requesting epidural placement. Epidural was placed without difficulty by the anesthesia department. Patient made slow progress eventually progressing to completely dilated. Patient was then placed in a modified lithotomy position, and with excellent maternal effort delivered a viable male infant in occiput posterior presentation. Weight of 7 lbs. 15 oz., Apgars of 9 and 9 at one and 5 minutes respectively. Delivery time of 1609. After two- minute delay the umbilical cord was doubly clamped and cut and the infant was handed to the maternal abdomen. Spontaneous cry was noted at . Cord blood was then taken. The placenta was delivered spontaneously intact with three- vessel cord being noted. The uterus was noted be firm and below the umbilicus at this time. Patient did sustain a second degree midline laceration this was instilled with lidocaine repaired in usual fashion with 3-0 repeat. Hemostasis was appreciated afterwards. Rectal exam was performed and found to be normal in nature no defects or suture were appreciated. The bladder was then drained for 100 mL of clear yellow urine. Estimated blood loss 200 mL. Patient and tolerated delivery well and are resting comfortably. All counts were correct 2 at the end of the delivery.
[2021-10-10] MEDS: IBUPROFEN 600 MG TAB PO SCH ×2 (16:49→23:30)
[2021-10-10] MEDS: ACETAMINOPHEN TAB 325 MG TAB PO PRN (19:50)
[2021-10-10] MEDS: SENNOSIDES-DOCUSATE SODIUM 1 EACH TAB PO SCH (19:51)
[2021-10-11] MEDS: ACETAMINOPHEN TAB 325 MG TAB PO PRN ×2 (03:29→12:38)
[2021-10-11] MEDS: IBUPROFEN 600 MG TAB PO SCH ×2 (08:40→14:59)
[2021-10-11] MEDS: SENNOSIDES-DOCUSATE SODIUM 1 EACH TAB PO SCH (08:40)
--- NOTE | 2021-10-11 08:50 | P.DS ---
Providers Date of admission: 10/10/21 05:51 Expected date of discharge: 10/11/21 Attending physician: Libia Staley Primary care physician: Stated None - Discharge Diagnosis(es) (1) Term Current Visit: No Status: Acute (2) Obstetric vaginal laceration with second degree perineal laceration Current Visit: Yes Status: Acute (3) Status post vaginal delivery Current Visit: No Status: Acute Hospital Course: This is a 31-year-old G3 now P3 that presented to labor and delivery at 39-4/7 weeks for elective induction of labor. Patient was admitted to labor and delivery and Pitocin induction of labor was begun. Suspected large for gestational age as she had been measuring large throughout the . Patient did become uncomfortable and requested epidural. Epidural was placed without difficulty by the anesthesia department. Patient made slow progress to complete began pushing and had a normal spontaneous vaginal delivery of a viable male at 1609, occiput posterior presentation. Patient did sustain a secondary midline laceration which was repaired in the usual fashion with 3-0 Rapide. Patient's course has been uneventful. On this day #1 she is ambulating and voiding without difficulty. She is resting without difficulty. She states she is feeling well and would like discharge home at 24 hours. Patient Condition at Discharge: Good Plan - Discharge Summary New Discharge Prescriptions: No Action 78/Iron/Folate 1/Dha [Prenate Dha Softgel] 1 each PO DAILY Aspirin [Adult Low Dose Aspirin EC] 81 mg PO DAILY Discharge Medication List 78/Iron/Folate 1/Dha [Prenate Dha Softgel] 1 each PO DAILY 04/15/19 [History] Aspirin [Adult Low Dose Aspirin EC] 81 mg PO DAILY 08/24/21 [History] Follow up Appointment(s)/Referral(s): Libia Stlaey DO [Doctor of Osteopathic Medicine] - 4 Weeks Patient Instructions/Handouts: Vaginal Delivery (GEN), Vaginal Delivery (DC) Activity/Diet/Wound Care/Special Instructions: Aqwy-tca-lhtgozh ibuprofen 600 mg every 6 hours as needed for pain. Encouraged senna/S2 at bedtime for stool softeners. Bleeding postdelivery is discussed with patient, she will call with any concerns prior to her visit. Discharge Disposition: HOME SELF-CARE
[2021-10-11] MEDS ORDERED: PRENATAL VIT-IRON-FOLIC ACID 1 EACH TABLET PO SCH (09:00)
[2021-10-11 09:58] VITALS: RESP 18
[2021-10-11 16:15] VITALS: BP 107/68; PULSE 79; TEMP 98.4
== END 2021-10-11 16:32 | disposition home or self-care (01) | DRG 807 ==
LOC: 4FBP 05:51
PROVIDERS: ADMIT Obstetrics & Gynecology Obstetrics; ATTEND Obstetrics & Gynecology Obstetrics
PROC: 10E0XZZ Delivery of Products of Conception, External Approach (ICD-10-PCS; principal; 2021-10-10)
PROC: 0KQM0ZZ Repair Perineum Muscle, Open Approach (ICD-10-PCS; 2021-10-10)
DX: O36.63X0 Maternal care for excessive fetal growth, third trimester, not applicable or unspecified (principal); Z37.0 Single live birth; O70.1 Second degree perineal laceration during delivery; Z3A.39 39 weeks gestation of pregnancy; Z79.82 Long term (current) use of aspirin; Z87.442 Personal history of urinary calculi
CPT/HCPCS: 85025; 86850; 86900; 86901

== ENCOUNTER → 2022-06-12 | Outpatient (CLI) | payer OTHER ==
--- NOTE | 2022-06-12 12:20 | MR ---
EXAMINATION TYPE: MR cervical spine wo con DATE OF EXAM: 06/12/2022 INDICATION: Patient age:Female; 31 years old; Reason for study: M54.2,M50.122. Neck pain into left arm COMPARISON: None. TECHNIQUE: Multi planar, multi sequence imaging was performed utilizing: T1-weighted, T2-weighted, an d turbo inversion recovery imaging of the cervical spine. IV Contrast: None FINDINGS: Alignment: The cervical vertebral bodies have preserved heights. Alignment is within normal limits gi samantha patient positioning. Bones: High T2/T1 signal within the right C3 vertebrae most compatible with vertebral body hemangioma no abnormal bone marrow edema. Cord: The spinal cord is unremarkable with regards to their signal intensity and morphology. Discs: Intervertebral disc signal is maintained. C2-C3: No significant disc pathology. The spinal canal is patent. No neural foraminal stenosis. C3-C4: No significant disc pathology. The spinal canal is patent. Bilateral facet and uncovertebral joint arthropathy are present with mild right neural foraminal stenosis. The left neural foramen is p atent. C4-C5: No significant disc pathology. The spinal canal is patent. No neural foraminal stenosis. C5-C6: A disc osteophyte complex is present which minimally narrows the ventral subarachnoid space. Bilateral facet and uncovertebral joint arthropathy are present with mild bilateral neural foraminal stenosis. C6-C7: No significant disc pathology. The spinal canal is patent. No neural foraminal stenosis. C7-T1: No significant disc pathology. The spinal canal is patent. No neural foraminal stenosis. IMPRESSION: 1. No evidence for disc herniation or significant spinal canal stenosis. 2. Minimal disc degeneration with associated osteoarthritic changes. No evidence of significant neura l foraminal stenosis.
== END | disposition home or self-care (01) ==
LOC: RADMRIMAIN 10:27
PROVIDERS: ATTEND Nurse Practitioner Family
DX: M50.10 Cervical disc disorder with radiculopathy, unspecified cervical region (principal); M47.22 Other spondylosis with radiculopathy, cervical region
CPT/HCPCS: 72141

== ENCOUNTER → 2024-05-27 | Outpatient (CLI) | payer OTHER ==
[2024-05-27 15:23] LABS: Appearance,Urine Cloudy (Clear); Bilirubin,Urine Negative (Negative); Blood,Urine Negative (Negative); Color,Urine Yellow (Yellow); Ketones,Urine Negative (Negative); Nitrite,Urine Negative (Negative); PH, Urine 8.5; Specific Gravity,Urine 1.021 (1.001-1.030); Urobilinogen,Urine 0.2 E.U./DL
[2024-05-27 15:27] LABS: Bacteria,Urine None Seen (None Seen)
[2024-05-27 16:52] LABS: BUN/Creat Ratio 12.88 Ratio (12.00-20.00); Blood Urea Nitrogen 10.3 mg/dL (9.0-27.0); Carbon Dioxide 24.2 mmol/L (21.6-31.8); Chloride 102 mmol/L (96-109); Glucose 118 mg/dL (70-110); Potassium 4.1 mmol/L (3.5-5.5); Sodium 138 mmol/L (135-145)
[2024-05-27 17:22] LABS: Basophils # (A) 0.06 X 10*3/uL (0.00-0.10); Basophils % (A) 0.9 %; Eosinophils # (A) 0.07 X 10*3/uL (0.04-0.35); Eosinophils % (A) 1.1 %; HCT 38.2 % (37.2-46.3); HGB 11.9 g/dL (12.0-15.0); Lymphocytes # (A) 2.39 X 10*3/uL (0.90-5.00); Lymphocytes % (A) 36.6 %; MCH 26.4 pg (27.0-32.0); MCHC 31.2 g/dL (32.0-37.0); MCV 84.7 FL (80.0-97.0); Mean Platelet Volume 9.5 FL (9.5-12.2); Monocytes # (A) 0.37 X 10*3/uL (0.20-1.00); Monocytes % (A) 5.7 %; NRBC Per 100 WBC 0 X 10*3/uL (0.00-0.01); Neutrophils # (A) 3.62 X 10*3/uL (1.80-7.70); Neutrophils % (A) 55.4 %; Platelet Count 319 X 10*3/uL (140-440); RBC 4.51 X 10*6/uL (4.10-5.20); RDW 13.2 % (11.5-14.5); WBC 6.53 X 10*3/uL (4.50-10.00)
== END | disposition home or self-care (01) ==
LOC: LABPAT 11:16
PROVIDERS: ATTEND Urology
DX: Z01.812 Encounter for preprocedural laboratory examination (principal); N39.3 Stress incontinence (female) (male)
CPT/HCPCS: 36415; 80048; 81001; 85025; 86850; 86900; 86901; 87086

== ENCOUNTER 2024-06-03 06:16 | Day surgery (SDC) | payer OTHER ==
--- NOTE | 2024-06-02 12:48 | P.GSHP ---
History of Present Illness H&P Date: 06/02/24 33-year-old female who came to me in the summer 2023 with a history of incontinence and secondary urine infection. She would leak with activity including sneezing coughing laughing. She would wear 1 pad per day. She is failed Kegel exercises. She has 3 vaginal deliveries. On examination she was found to have a hypermobile urethra stress incontinence. Had a positive Ortiz test. At that point in time she was given options of treatment but delayed evaluation until this winter because of family issues. She underwent urodynamic studies identified and normal bladder function and she emptied her bladder nicely. The point pressures were 75 and 70 cm of water. She was given treatment options. And we have chosen to proceed with a transobturator tape to control her incontinence. The risks and complications include infection bleeding pain persistence of incontinence urine retention erosion of the graft, dyspareunia among others have been explained understood and accepted - Constitutional Constitutional: Denies chills, Denies fever - EENT Eyes: denies blurred vision, denies pain Ears, nose, mouth and throat: Denies headache, Denies sore throat - Cardiovascular Cardiovascular: Denies chest pain, Denies shortness of breath - Respiratory Respiratory: Denies cough, Denies 7 - Gastrointestinal Gastrointestinal: Denies abdominal pain, Denies diarrhea, Denies nausea, Denies vomiting - Genitourinary (Female) Genitourinary: Denies dysuria, Denies hematuria - Genitourinary (Male) Genitourinary: Denies dysuria, Denies hematuria - Musculoskeletal Musculoskeletal: Denies myalgias - Integumentary Integumentary: Denies pruritus, Denies rash - Neurological Neurological: Denies numbness, Denies weakness - Psychiatric Psychiatric: Denies anxiety, Denies depression - Endocrine Endocrine: Denies fatigue, Denies weight change Past Medical History Past Medical History: No Reported History Additional Past Medical History / Comment(s): hx. of kidney stones, IBS, seasonal allergies, urinary leakage History of Any Multi-Drug Resistant Organisms: None Reported Past Surgical History: Tonsillectomy Additional Past Surgical History / Comment(s): cystoscopy w/stent Past Anesthesia/Blood Transfusion Reactions: Previous Problems w/ Anesthesia Additional Past Anesthesia/Blood Transfusion Reaction / Comment(s): Pt reports that she broke out in hives after her epidural with her 2nd . 3rd no issues Smoking Status: Never smoker - Past Family History Mother Family Medical History: No Reported History Medications and Allergies Home Medications Medication Instructions Recorded Confirmed Type Amphet/Dextr 20 mg PO DAILY 06/02/24 06/02/24 History Escitalopram Oxalate [Lexapro] 20 mg PO HS 06/02/24 06/02/24 History Allergies Allergy/AdvReac Type Severity Reaction Status Date / Time No Known Allergies Allergy Verified 06/02/24 08:32 Surgical - Exam - General well developed, well nourished, no distress - Eyes normal ocular movement, no icteric - ENT no hearing loss, no congestion - Neck no masses, trachea midline - Respiratory normal respiratory effort, clear to auscultation - Abdomen Abdomen: soft, non tender, no guarding, no rigid, no rebound - Genitourinary Mobile urethra with stress incontinence - Integumentary no rash, no abnormal pigmentation - Neurologic no disoriented, no combative - Psychiatric oriented to time, oriented to person, oriented to place, speech is normal, memory intact Assessment and Plan Assessment: Impression: Stress urinary incontinence, grade 2 Recommendations: Cystoscopy with transobturator tape
[~2024-06-03 06:16] MED LIST changes: -DEXAMETHASONE SOD PHOSPHATE 10 MG/ML 1 ML VIAL IV ONE; -DEXAMETHASONE SOD PHOSPHATE 4 MG/ML 1 ML VIAL IV ONE; -FAMOTIDINE 20 MG/2 ML VIAL IV ONE; +LIDOCAINE 1% (10MG/ML) FOR IV START INTRADERMA PRN; -MIDAZOLAM 2 MG/2 ML VIAL IV PRN; -ONDANSETRON 4 MG/2 ML VIAL IVP ONE; -Pre Op ABX Message 1 EACH MISC MISCELLANE ONE
[2024-06-03] MEDS: IV FLUID CONTINUATION 1,000 ML IV ONE (06:34)
[2024-06-03] MEDS: LACTATED RINGERS 1,000 ML IV SCH (06:59)
[2024-06-03] MEDS ORDERED: HYDROmorphone 0.5 MG/0.5 ML SYRINGE IVP PRN (07:00)
[2024-06-03] MEDS: ONDANSETRON 4 MG/2 ML VIAL IVP ONE (07:01)
[2024-06-03] MEDS: DEXAMETHASONE SOD PHOSPHATE 4 MG/ML 1 ML VIAL IV ONE (07:01)
[2024-06-03] MEDS ORDERED: KETOROLAC 30 MG/ML 1 ML VIAL ONE (07:19)
[2024-06-03] MEDS ORDERED: fentaNYL (PF) 50 MCG/ML 2 ML AMP ONE (07:19)
[2024-06-03] MEDS ORDERED: LIDOCAINE 1% INJ 10MG/ML (20 ML MDV) ONE (07:19)
[2024-06-03] MEDS ORDERED: MIDAZOLAM 2 MG/2 ML VIAL ONE (07:19)
[2024-06-03] MEDS ORDERED: PROPOFOL 10 MG/ML 20 ML VIAL IV ONE (07:19)
[2024-06-03] MEDS ORDERED: PHENYLEPHRINE-0.9% NACL SYG 1,000 MCG/10 ML SYRINGE ONE (07:19)
[2024-06-03] MEDS: AMPICILLIN 1,000 MG in SODIUM CHLORIDE 0.9% 50 ML IVPB PRN (07:25)
[2024-06-03] MEDS: GENTAMICIN 100 MG in SODIUM CHLORIDE 0.9% 100 ML IVPB PRN (07:25)
[2024-06-03] MEDS: VASOPRESSIN 20 UNIT/ML 1 ML VIAL SQ ONE (07:41)
[2024-06-03] MEDS: GENTAMICIN IN NACL ISO-OSM PMX 80 MG/100 ML BAG IVPB ONE (07:41)
[2024-06-03] MEDS: BACITRACIN ZINC 500 UNIT/GM OINT 28.4 GM TUBE TOPICAL ONE (07:41)
[2024-06-03] MEDS ORDERED: ONDANSETRON 4 MG/2 ML VIAL IVP PRN (08:08)
--- NOTE | 2024-06-03 08:15 | P.OP ---
Date of Procedure: 06/03/24 Preoperative Diagnosis: Stress urinary incontinence Postoperative Diagnosis: Same Procedure(s) Performed: Insertion of transobturator tape,obtyrx 2, cystoscopy Anesthesia: FREDAA Surgeon: Zak Lou Estimated Blood Loss (ml): 25 Pathology: none sent Condition: stable Disposition: PACU Indications for Procedure: The patient is 33. She has symptomatic stress urinary incontinence confirmed by physical examination and urodynamic she comes for transobturator tape this and complications including infection bleeding pain retention persistent incontinence mesh erosion dyspareunia among others been explained understood and accepted Description of Procedure: Patient brought to the operating suite. Given a general anesthetic. Placed in lithotomy position with a sterile prep and drape. A 16 Dutch Morrell catheter was introduced sterilely. The labia are sewn laterally with 2-0 silk. A vaginal speculum is introduced. The anterior vaginal mucosa was elevated off the submucosa with 10 mL of a mixture of 20 units of Pitressin and 200 mL of saline. A midline suburethral incision is made. I dissected lateral to the bladder neck bilaterally. I then make incisions and inguinal crease at the level of the clitoris. This is done bilaterally. I passed the introducers through the incision into the obturator foramen around the ischial pubic ramus into the vaginal space bilaterally. I then remove the Morrell and perform cystoscopy to make sure there is no evidence of bladder injury and there is none. The bladder mucosa is unremarkable ureteral orifices are normal the urethra is normal. The Morrell catheter was introduced back into the bladder. I introduced the graft to each introducer and pulled the graft back through the inguinal incisions bilaterally. The graft lay in the mid urethra nicely. It is without significant tension. I then remove the redundant sheathing. I closed the vaginal mucosa with 2-0 Vicryl over the graft. I remove the redundant graft from the inguinal incisions and closed the inguinal lesions with 4-0 Vicryl. Vaginal packing is placed the labial stitches are removed the urine remains clear. The patient is awakened and returned to recovery in good condition. Blood loss is 25 mL.
[2024-06-03] MEDS ORDERED: AMPHET PO SCH (09:00)
[2024-06-03] MEDS ORDERED: DEXTR PO SCH (09:00)
[2024-06-03 10:01] VITALS: RESP 16
[2024-06-03] MEDS: SCOPOLAMINE 1 MG/72 HR PATCH TRANSDERM ONE (10:05)
[2024-06-03] MEDS: droPERidol 5 MG/2 ML VIAL IVP ONE (10:05)
[2024-06-03] MEDS: DEXTROSE 5%-0.45% NACL 1,000 ML IV SCH (10:06)
[2024-06-03] MEDS: KETOROLAC 15 MG/ML 1 ML VIAL IVP PRN (13:51)
[2024-06-03] MEDS: ESCITALOPRAM 20 MG TAB PO SCH (21:13)
[2024-06-04 08:24] VITALS: BP 99/54; PULSE 72; TEMP 98.8
--- NOTE | 2024-06-04 13:01 | P.DS ---
Providers Expected date of discharge: 06/04/24 Attending physician: Zak Lou Primary care physician: Augusta Hernandez [facility] Course: On the day of admission, the patient underwent an uncomplicated Obtryx TOT sling. The perioperative course was unremarkable. The patient remained afebrile with stable vital signs. The Morrell catheter was removed on the first postoperative day. She was subsequently able to void without difficulty, and empty her bladder adequately. She reported minimal discomfort at the time of discharge. Procedures: Obtryx sling on 06/03/2024. Patient Condition at Discharge: Good Plan - Discharge Summary Discharge Rx Participant: No New Discharge Prescriptions: New Ketorolac [Toradol] 10 mg PO Q6HR PRN #10 tab PRN Reason: Pain Cephalexin [Keflex] 500 mg PO Q8HR 3 Days #9 cap No Action Amphet/Dextr 20 mg PO DAILY Escitalopram Oxalate [Lexapro] 20 mg PO HS Discharge Medication List Amphet/Dextr 20 mg PO DAILY 06/02/24 [History] Escitalopram Oxalate [Lexapro] 20 mg PO HS 06/02/24 [History] Cephalexin [Keflex] 500 mg PO Q8HR 3 Days #9 cap 06/04/24 [Rx] Ketorolac [Toradol] 10 mg PO Q6HR PRN #10 tab 06/04/24 [Rx] Follow up Appointment(s)/Referral(s): Zak Lou MD [STAFF PHYSICIAN] - 06/11/24 Activity/Diet/Wound Care/Special Instructions: Diet as tolerated. Drink plenty of fluids. Avoid straining and intercourse. Discharge Disposition: HOME SELF-CARE
== END 2024-06-04 14:50 | disposition home or self-care (01) ==
LOC: OR 06:16 → 4FBP 08:12 → OR 06-04 14:50
PROVIDERS: ATTEND Urology
DX: N39.3 Stress incontinence (female) (male) (principal); K58.9 Irritable bowel syndrome, unspecified; N36.41 Hypermobility of urethra; Z90.89 Acquired absence of other organs; Z87.442 Personal history of urinary calculi
CPT/HCPCS: 81025; 57288; C1771; J1580 ×2; J1100; J2405; J0290; J1885 ×2